=== PATIENT | male | born 1995 | race Two or more races ===

== ENCOUNTER 2018-12-09 16:47 | Emergency (ER) | payer OTHER ==
[~2018-12-09] VITALS: Ht 172.7 cm; Wt 91.0 kg
[2018-12-09 16:54] VITALS: BP 144/81
== END 2018-12-09 19:50 | disposition home or self-care (01) ==
LOC: ER 16:47
DX: J20.9 Acute bronchitis, unspecified (principal); J45.909 Unspecified asthma, uncomplicated; F17.200 Nicotine dependence, unspecified, uncomplicated
CPT/HCPCS: 71045; 99283